=== PATIENT | female | born 1995 | race Two or more races ===

== ENCOUNTER 2024-02-12 00:29 | Emergency (ER) | payer OTHER ==
[~2024-02-12] VITALS: Ht 162.6 cm; Wt 80.3 kg
[2024-02-12] MEDS ORDERED: RINGERS SOLUTION,LACTATED 1,000 ML IV STA (02:50)
[2024-02-12 03:32] LABS: HEMATOCRIT 29.6 % (36.0-45.00); HEMOGLOBIN 9.4 g/dL (12.0-15.00); MEAN CORPUSCULAR HEMOGLOBIN 21.5 pg (27.00-32.0); MEAN CORPUSCULAR HGB CONC 31.7 g/dl (32.0-36.0); PLATELET COUNT 293 K/uL (150-450); RED BLOOD COUNT 4.37 M/uL (4.00-6.00); RED CELL DISTRIBUTION WIDTH 15.6 % (11.5-14.5)
[2024-02-12 03:33] LABS: MEAN CELL VOLUME 67.7 fL (80.00-100.00)
[2024-02-12 03:40] LABS: INR 0.96; PROTHROMBIN TIME 10.5 SECONDS (9.0-11.5)
[2024-02-12 03:46] LABS: CALCIUM 8.9 mg/dL (8.5-10.1); CREATININE SERUM 0.72 mg/dL (0.55-1.02); GFR 94.48; POTASSIUM 3.61 mEq/L (3.5-5.1)
== END 2024-02-12 05:29 | disposition home or self-care (01) ==
LOC: ER 00:30
DX: O03.9 Complete or unspecified spontaneous abortion without complication (principal)